=== PATIENT | female | born 2000 | race Two or more races ===

== ENCOUNTER → 2025-07-10 | Outpatient (CLI) | payer BC, SELFPAY ==
[2025-07-10 22:24] LABS: Free T4 (Free Thyroxine) 1.13 ng/dL (0.89-1.76); Thyroid Stimulating Hormone 2.22 uIU/mL (0.55-4.78)
[2025-07-17 06:52] LABS: T3,Total* 129 ng/dL (76-181)
== END | disposition home or self-care (01) ==
PROVIDERS: PCP Nurse Practitioner Family; Referring Provider Nurse Practitioner Family; Visit Provider Nurse Practitioner Family
DX: R94.6 Abnormal results of thyroid function studies (principal)
CPT/HCPCS: 36415; 84439; 84443; 84480

== ENCOUNTER 2025-10-25 06:41 | Emergency (ER) | payer OTHER, SELFPAY ==
[2025-10-25 06:42] VITALS: BMI 25.0
[2025-10-25 07:07] VITALS: BP 122/64; PULSE 70; RESP 18; TEMP 36.6; O2SAT 100
--- NOTE | 2025-10-25 07:12 | EDNOTE_ITS ---
ED General RME/HPI General Chief complaint: General Adult/Misc Complain Stated complaint: NEEDL STICK AT WORK Time Seen by Provider: 10/25/25 06:43 Source: patient Arrival date/time: 10/25/25 06:41 25-year-old female with no known medical history presents to the emergency room with a chief complaint of an accidental needlestick injury that occurred at work today Mode of arrival: ambulatory Limitations: no limitations Related Data Allergies Allergy/AdvReac Type Severity Reaction Status Date / Time No Known Allergies Allergy Verified 10/25/25 06:45 Review of Systems Review of Systems Systems Reviewed: All systems reviewed, normal except as documented Constitutional Constitutional: Reports system reviewed and no additional complaints, except as documented, Denies fatigue, Denies fever(s), Denies headache(s) and Denies weakness Eyes Eyes: Reports system reviewed and no additional complaints, except as documented, Denies blurry vision and Denies change in vision ENT Ears, Nose, Mouth, and Throat: Reports system reviewed and no additional complaints, except as documented, Denies otalgia, Denies headache(s), Denies nasal congestion, Denies throat swelling and Denies vertigo Cardiovascular Cardiovascular: Reports system reviewed and no additional complaints, except as documented, Denies chest pain, Denies dyspnea and Denies dyspnea on exertion Respiratory Respiratory: Reports system reviewed and no additional complaints, except as d ocumented, Denies chest congestion, Denies cough, Denies dyspnea, Denies dyspnea on exertion and Denies wheezing Gastrointestinal Gastrointestinal: Reports system reviewed and no additional complaints, except as documented, Denies abdominal pain, Denies cramping, Denies nausea and Denies vomiting Genitourinary Genitourinary: Reports system reviewed and no additional complaints, except as documented Musculoskeletal Musculoskeletal: Reports system reviewed and no additional complaints, except as documented and Denies back pain Integumentary/Breasts Skin/Breast: Reports system reviewed and no additional complaints, except as documented and Denies wounds Neurologic Neurologic: Reports system reviewed and no additional complaints, except as documented, Denies confusion, Denies headache(s), Denies lack of coordination, Denies vertigo and Denies weakness Psychiatric Psychiatric: Reports system reviewed and no additional complaints, except as documented, Denies anxiety, Denies confusion, Denies depression, Denies paranoia, Denies suicidal ideation and Denies tactile hallucinations Endocrine Endocrine: Reports system reviewed and no additional complaints, except as documented and Denies fatigue Hematologic/Lymphatic Hematologic/Lymphatic: Reports system reviewed and no additional complaints, except as documented and Denies lymphadenopathy Allergic/Immunologic Allergic/Immunologic: Reports system reviewed and no additional complaints, except as documented, Denies throat swelling, Denies urticaria and Denies wheezing Past Medical History Social History SMOKING STATUS: Never smoker ED Exam General Limitations: Present no limitations General appearance: Present alert and in no apparent distress Head Head exam: Present atraumatic Eye Eye exam: Present normal appearance, PERRL and EOMI ENT ENT exam: Present normal exam, normal oropharynx and mucous membranes moist Neck Neck exam: Present normal inspection, full ROM and trachea midline Chest Chest inspection: Present normal inspection and symmetric chest wall rise Respiratory Respiratory exam: Present normal lung sounds bilaterally Cardiovascular Cardiovascular exam: Present regular rate, normal rhythm and normal heart sounds Abdominal Exam Abdominal exam: Present soft and normal bowel sounds Extremities Exam Extremities exam: Present normal inspection and full ROM Back Exam Back exam: Present normal inspection and full ROM Neurological Exam Neurological exam: Present alert, oriented X3 and CN II-XII intact Psychiatric Psychiatric exam: Present normal affect and normal mood Skin Skin exam: Present warm, dry, intact and normal color Course Quality Measures none Orders Category Date Time Status HIV (1&2) Antibody Rapid Stat Lab 10/25/25 08:22 Completed Hepatitis B Surface Ab Stat Lab 10/25/25 08:22 Completed Hepatitis C Antibody Stat Lab 10/25/25 08:22 Completed Vital Signs Vital signs: Vital Signs Temperature 98 F 10/25/25 07:07 Pulse Rate 70 10/25/25 07:07 Respiratory Rate 18 10/25/25 07:07 Blood Pressure 122/64 10/25/25 07:07 Pulse Oximetry (%) 100 10/25/25 07:07 Oxygen Delivery Method Room Air 10/25/25 07:07 O2 saturation 100% on room air Discharge Plan Plan Patient Disposition: HOME (Self Care) Discharge Disposition comment: Stable Prescriptions/Referrals Referrals: Bryon Otto MD [Primary Care Provider, Family Practice] - In 1 week Problem List Clinical Impression: Accidental hypodermic needlestick injury Patient/Caregiver Discharge Instructions Additional Instructions: Please follow-up with your primary care provider in the next 24 to 48 hours Your blood work was drawn and was negative for any acute findings. You will need to have repeat blood work done by your primary care provider For any evidence of worsening signs or symptoms return to the emergency room immediately Print Language: Slovak Stand Alone Forms: Becki Ibarra Info., Patient Portal Info Letter PA/[employer] SPECIALIST Supervising Physician PA/MARGIE Supervising Physician: Dr. Mcdermott MDM Narrative MDM hospital course (for use when minimal MDM required): 25-year-old female with no known medical history presents to the emergency room with a chief complaint of an accidental needlestick injury that occurred at work today Patient is hemodynamically stable and in no apparent distress Physical examination shows a small erythemic area in the left index finger where she got poked. Patient states there was not a lot of blood that the patient was given an insulin injection and while retracting the needle accidentally poked himself. The patient was wearing gloves and states it was very superficial. 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 and her vaccinations are up to date and she will not like any PEP Patient was discharged and educated to follow-up with primary care provider in the next 24 to 48 hours and return to the emergency room for any evidence of worsening signs or symptoms Clinical Information Provided by: none and patient Medical Records reviewed None Meds/Rx considered, not ordered None Labs/Rad/Tests considered, not ordered None Chronic Illness/Social Conditions which may negatively complicate care or outcome(s)-explain: None or not applicable EKG EKG not done Labs Labs: none Imaging Imaging interpretation: none Medication Administration(s) none Diagnosis Differential Diagnosis ED Complaint MDM: Accidental needlestick injury
[2025-10-25 09:24] LABS: HIV (1&2) Antibody Rapid Non-Reactive
[2025-10-25 10:02] LABS: Hepatitis B Surface Ab Reactive (Immune) (Immune); Hepatitis C Antibody Non Reactive (Non React)
== END 2025-10-25 10:32 | disposition home or self-care (01) ==
PROVIDERS: Nurse Practitioner Family; Emergency Provider Emergency Medicine; PCP Family Medicine
DX: S61.231A Puncture wound without foreign body of left index finger without damage to nail, initial encounter (principal); W46.1XXA Contact with contaminated hypodermic needle, initial encounter; Y93.89 Activity, other specified; Y92.89 Other specified places as the place of occurrence of the external cause
CPT/HCPCS: 36415; 86703; 86706; 86803; 99282